=== PATIENT | female | born 1955 | race American Indian/Alaskan Native ===

== ENCOUNTER 2016-04-16 01:48 | Emergency (ER) | payer MEDICARE ==
[2016-04-16 02:25] LABS: Basophils % (Auto) 0.9 % (0.0-1.8); Eosinophils % (Auto) 1.3 % (0.0-4.3); Hematocrit 40.8 % (30.3-42.9); Hemoglobin 13.2 gm/dl (10.1-14.3); Mean Corpuscular HGB Conc 32 % (30-34); Mean Corpuscular Volume 79 fl (79-97); Platelet Count 352 K/mm3 (140-440); Red Blood Count 5.19 M/mm3 (3.65-5.03); Red Cell Distribution Width 13.7 % (13.2-15.2)
[2016-04-16 02:26] LABS: Mean Corpuscular Hemoglobin 25 pg (28-32)
[2016-04-16 02:46] LABS: Alanine Aminotransferase 18 units/L (7-56); Albumin 3.5 g/dL (3.9-5); Albumin/Globulin Ratio 0.9 %; Alkaline Phosphatase 136 units/L (35-129); BUN/Creatinine Ratio 16.25; Bilirubin,Total 0.4 mg/dL (0.1-1.2); Blood Urea Nitrogen 13 mg/dL (7-17); Calcium 8.8 mg/dL (8.4-10.2); Carbon Dioxide 20 mmol/L (22-30); Glucose 316 mg/dL (65-100); Lipase 37 units/L (13-60); Potassium 4.4 mmol/L (3.6-5.0); Sodium 134 mmol/L (137-145); Total Protein 7.2 g/dL (6.3-8.2)
[2016-04-16 02:51] LABS: Anion Gap 20 mmol/L
[2016-04-16 03:04] LABS: Bacteria,Urine 2+ /HPF (Negative); Bilirubin,Urine NEG (Negative); Blood,Urine MOD (Negative); Ketones,Urine NEG (Negative); Leukocyte Esterase,Urine LG (Negative); Mucus,Urine 1+ /HPF; Nitrite,Urine NEG (Negative); Urobilinogen,Urine < 2.0 mg/dL (<2.0)
[2016-04-16 03:09] LABS: WBC,Urine > 182.0 /HPF (0.0-6.0)
[2016-04-16] MEDS ORDERED: ZOFRAN ODT PO ONE (06:29)
--- NOTE | 2016-04-16 06:29 | Emergency Department Report ---
Chief Complaint: Abdominal Pain Stated Complaint: NAUSEA/DIARRHEA Time Seen by Provider: 04/16/16 06:15 - HPI History of Present Illness: She is a 60-year-old diabetic female on insulin who presents to ED complaining of pelvic abdominal pain 2 days. She describes pain as sharp nonradiating in nature. Patient admits to episodes of nausea today as well as nonbloody watery stools 2 today. Patient denies fevers/chills/dysuria/chest pain/shortness of breath/dizziness or headaches. - ROS Review of Systems: As noted in HPI - Exam Vital Signs: Vital Signs 04/16/16 04/16/16 01:58 06:11 Temperature 98.6 F 98.1 F Pulse Rate 90 87 Respiratory 20 18 Rate Blood Pressure 128/77 119/73 O2 Sat by Pulse 100 99 Oximetry Physical Exam: GENERAL: Alert and oriented x3, no apparent distress, Normal Gait, atraumatic. HEAD: Head is normocephalic and a-traumatic. MOUTH:Mouth is well hydrated and without lesions. Tonsils nonerythematous or swollen, Uvula midline, Tongue not elevated. Mucous membranes are moist. Posterior pharynx clear, no exudate or lesions. Patent airways. NECK: Supple. Non edematous, No carotid bruits. No lymphadenopathy or thyromegaly. LUNGS: Symetrical with respiration, No wheezing, no rales or crackles, CTAB. HEART: S1, S2 present, regular rate and rhythm without murmur, no rubs, no gallops. ABDOMEN: No organomegaly was noted,Positive bowel sounds, soft, and non- distended. . Nontender to palpation on all Quadrants, No CVA tenderness. MSE screening note: Focused history and physical exam performed. Due to findings the following was ordered: ED Medical Decision Making - Lab Data Result diagrams: 04/16/16 02:14 04/16/16 02:14 - Medical Decision Making Blood work shows leukocytosis, high blood glucose, alkaline phosphate elevated Urine shows positive for UTI. Positive left dorsalis positive bacteria positive mucus. Patient administer Zofran 8 mg for nausea. Patiently into the please seen by ED Physician ED Disposition for MSE Condition: Stable Instructions: Abdominal Pain (ED)
[2016-04-16 07:38] VITALS: BP 122/65
--- NOTE | 2016-04-16 08:19 | Emergency Department Report ---
ED Abdominal Pain HPI - General Chief Complaint: Abdominal Pain Stated Complaint: NAUSEA/DIARRHEA Time Seen by Provider: 04/16/16 08:10 Source: patient, family Mode of arrival: Ambulatory Limitations: No Limitations - History of Present Illness Initial Comments: 60-year-old female presents to the emergency department complaining of abdominal pain. Patient reports intermittent lower abdominal pain for the past 2 days. Patient describes the pain as a pulling sensation. Pain does not radiate. She reports associated nausea, vomiting, and diarrhea. She denies fever, hematuria, dysuria, vaginal bleeding, or vaginal discharge. There are no other complaints. MD Complaint: abdominal pain -: Gradual, days(s) (2) Location: suprapubic Radiation: none Migration to: no migration Severity: severe Severity scale (0 -10): 8 Quality: other (pulling) Consistency: intermittent Improves With: nothing Worsens With: nothing Associated Symptoms: nausea, vomiting, diarrhea - Related Data Previous Rx's Medication Instructions Recorded Last Taken Type Ibuprofen [Motrin] 600 mg PO Q8H PRN #30 tablet 12/28/14 Unknown Rx methOCARBAMOL [Robaxin TAB] 500 mg PO BID PRN #10 tab 12/28/14 Unknown Rx traMADol [Ultram] 50 mg PO Q8H PRN #14 tablet 12/28/14 Unknown Rx HYDROcodone/APAP 5-325 [[place] 1 each PO Q6HR PRN #14 tablet 04/16/16 Unknown Rx 5/325] Nitrofurantoin Bert[place]/M-Cryst 100 mg PO Q12HR #14 capsule 04/16/16 Unknown Rx [Macrobid CAP] Allergies Allergy/AdvReac Type Severity Reaction Status Date / Time metformin Allergy Vomiting Verified 04/16/16 01:58 ED Review of Systems ROS: Stated complaint: NAUSEA/DIARRHEA Other details as noted in HPI Comment: All other systems reviewed and negative Gastrointestinal: abdominal pain, nausea, vomiting, diarrhea ED Past Medical Hx - Past Medical History Previous Medical History?: Yes Hx Hypertension: Yes Hx CVA: Yes Hx Diabetes: Yes - Surgical History Past Surgical History?: Yes Additional Surgical History: Hysterectomy - Family History Family history: no significant - Social History Smoking Status: Never Smoker Substance Use Type: None - Medications Home Medications: Home Medications Medication Instructions Recorded Confirmed Last Taken Type Ibuprofen [Motrin] 600 mg PO Q8H PRN #30 tablet 12/28/14 04/16/16 Unknown Rx methOCARBAMOL [Robaxin TAB] 500 mg PO BID PRN #10 tab 12/28/14 04/16/16 Unknown Rx traMADol [Ultram] 50 mg PO Q8H PRN #14 tablet 12/28/14 04/16/16 Unknown Rx HYDROcodone/APAP 5-325 [[place] 1 each PO Q6HR PRN #14 tablet 04/16/16 Unknown Rx 5/325] Nitrofurantoin Bertie/M-Cryst 100 mg PO Q12HR #14 capsule 04/16/16 Unknown Rx [Macrobid CAP] ED Physical Exam - General Limitations: No Limitations General appearance: alert, in no apparent distress - Head Head exam: Present: atraumatic, normocephalic - Eye Eye exam: Present: normal appearance, PERRL, EOMI - ENT ENT exam: Present: normal exam, normal orophraynx, mucous membranes moist - Neck Neck exam: Present: normal inspection, full ROM. Absent: tenderness - Respiratory Respiratory exam: Present: normal lung sounds bilaterally. Absent: respiratory distress - Cardiovascular Cardiovascular Exam: Present: regular rate, normal rhythm, normal heart sounds - GI/Abdominal GI/Abdominal exam: Present: soft, tenderness (mild suprapubic tenderness to palpation), normal bowel sounds. Absent: distended, guarding, rebound - Extremities Exam Extremities exam: Present: normal inspection, full ROM. Absent: tenderness - Back Exam Back exam: Present: normal inspection, full ROM. Absent: tenderness - Neurological Exam Neurological exam: Present: alert, oriented X3. Absent: motor sensory deficit - Skin Skin exam: Present: warm, dry, intact ED Course Vital Signs 04/16/16 04/16/16 04/16/16 01:58 06:11 07:31 Temperature 98.6 F 98.1 F Pulse Rate 90 87 Respiratory 20 18 Rate Blood Pressure 128/77 119/73 122/65 Blood Pressure [Left] O2 Sat by Pulse 100 99 96 Oximetry 04/16/16 04/16/16 07:37 07:38 Temperature 98.1 F Pulse Rate 80 Respiratory 14 14 Rate Blood Pressure Blood Pressure 122/65 [Left] O2 Sat by Pulse 96 96 Oximetry ED Medical Decision Making - Lab Data Result diagrams: 04/16/16 02:14 04/16/16 02:14 - Medical Decision Making Lab results reviewed and discussed with the patient. Patient will be treated for her urinary tract infection and discharged home to follow up with her primary care physician. - Differential Diagnosis abdominal pain, UTI, gastroenteritis, electrolyte abnormality Critical care attestation.: If time is entered above; I have spent that time in minutes in the direct care of this critically ill patient, excluding procedure time. ED Disposition Clinical Impression: Acute cystitis Qualifiers: Hematuria presence: with hematuria Qualified Code(s): N30.01 - Acute cystitis with hematuria Disposition: DISCHARGED TO HOME OR SELFCARE Is pt being admited?: No Condition: Stable Instructions: Urinary Tract Infection in Women (ED) Prescriptions: Nitrofurantoin Bertie/M-Cryst [Macrobid CAP] 100 mg PO Q12HR #14 capsule HYDROcodone/APAP 5-325 [[place] 5/325] 1 each PO Q6HR PRN #14 tablet PRN Reason: Pain Referrals: PRIMARY CARE, [Primary Care Provider] - 3-5 Days Time of Disposition: 08:19
== END 2016-04-16 08:37 | disposition home or self-care (01) ==
LOC: ED 01:48
DX: N30.01 Acute cystitis with hematuria (principal); I10 Essential (primary) hypertension; I63.9 Cerebral infarction, unspecified; E11.9 Type 2 diabetes mellitus without complications; Z88.8 Allergy status to other drugs, medicaments and biological substances
CPT/HCPCS: 36415; 80053; 81001; 83690; 85025; 99283; Q0162

== ENCOUNTER 2018-12-04 03:12 | Emergency (ER) | payer MEDICARE ==
[2018-12-04 03:27] VITALS: BP 146/79
[2018-12-04] MEDS ORDERED: TORADOL IM ONE (04:46)
[2018-12-04] MEDS ORDERED: DECADRON IM ONE (04:47)
--- NOTE | 2018-12-04 04:50 | Emergency Department Report ---
ED Extremity Problem HPI - General Chief complaint: Extremity Injury, Lower Stated complaint: DULL MUSCLE Time Seen by Provider: 12/04/18 04:46 Source: patient Mode of arrival: Ambulatory Limitations: No Limitations - History of Present Illness Initial comments: 63-year-old -[place] female presents to the emergency room for awakening right hip pain 1 day. Patient states he radiates to her knee. Patient reports it is worse when she steps on her right foot. Patient denies any fall or injury. Patient has taken nothing for the pain. 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 Patient is followed by [facility]. MD Complaint: extremity pain Onset/Timin -: days(s) Location: right, other (hip) - Related Data Previous Rx's Medication Instructions Recorded Last Taken Type Ibuprofen [Motrin] 600 mg PO Q8H PRN #30 tablet 12/28/14 Unknown Rx methOCARBAMOL [Robaxin TAB] 500 mg PO BID PRN #10 tab 12/28/14 Unknown Rx traMADol [Ultram] 50 mg PO Q8H PRN #14 tablet 12/28/14 Unknown Rx HYDROcodone/APAP 5-325 [[place] 1 each PO Q6HR PRN #14 tablet 04/16/16 Unknown Rx 5/325] Nitrofurantoin [place]/M-Cryst 100 mg PO Q12HR #14 capsule 04/16/16 Unknown Rx [Macrobid CAP] Naproxen [Naprosyn] 500 mg PO BID PRN #30 tablet 12/04/18 Unknown Rx Allergies Allergy/AdvReac Type Severity Reaction Status Date / Time metformin Allergy Vomiting Verified 04/16/16 01:58 ED Review of Systems ROS: Stated complaint: DULL MUSCLE Other details as noted in HPI ED Past Medical Hx - Past Medical History Previous Medical History?: Yes Hx Hypertension: Yes Hx CVA: Yes Hx Diabetes: Yes - Surgical History Past Surgical History?: Yes Additional Surgical History: Hysterectomy - Social History Smoking Status: Never Smoker Substance Use Type: None - Medications Home Medications: Home Medications Medication Instructions Recorded Confirmed Last Taken Type Ibuprofen [Motrin] 600 mg PO Q8H PRN #30 tablet 12/28/14 04/16/16 Unknown Rx methOCARBAMOL [Robaxin TAB] 500 mg PO BID PRN #10 tab 12/28/14 04/16/16 Unknown Rx traMADol [Ultram] 50 mg PO Q8H PRN #14 tablet 12/28/14 04/16/16 Unknown Rx HYDROcodone/APAP 5-325 [[place] 1 each PO Q6HR PRN #14 tablet 04/16/16 Unknown Rx 5/325] Nitrofurantoin [place]/M-Cryst 100 mg PO Q12HR #14 capsule 04/16/16 Unknown Rx [Macrobid CAP] Naproxen [Naprosyn] 500 mg PO BID PRN #30 tablet 12/04/18 Unknown Rx ED Physical Exam - General Limitations: No Limitations General appearance: alert, in no apparent distress - Head Head exam: Present: atraumatic, normocephalic - Eye Eye exam: Present: normal appearance - ENT ENT exam: Present: mucous membranes moist - Expanded Lower Extremity Exam Right Hip exam: Present: tenderness (greater trochanter) Upper Leg exam: Present: normal inspection, full ROM Knee exam: Present: normal inspection, full ROM Lower Leg exam: Present: normal inspection, full ROM Ankle exam: Present: normal inspection, full ROM - Back Exam Back exam: Present: normal inspection - Neurological Exam Neurological exam: Present: alert, oriented X3 - Psychiatric Psychiatric exam: Present: normal affect, normal mood - Skin Skin exam: Present: warm, dry, intact, normal color. Absent: rash ED Course Vital Signs 12/04/18 03:23 Temperature 97.7 F Pulse Rate 71 Respiratory 18 Rate Blood Pressure 146/79 O2 Sat by Pulse 99 Oximetry ED Medical Decision Making - Medical Decision Making 63-year-old -[place] female presents to the emergency room for awakening right hip pain 1 day. Patient states he radiates to her knee. Patient reports it is worse when she steps on her right foot. Patient denies any fall or injury. Patient has taken nothing for the pain. 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 Patient is followed by [facility]. Patient will be given a Toradol injection and a dexamethasone injection. Patient has a bursitis of her hip. I discussed the patient that the steroid may increase her blood sugars that she will need to make an adjustment to her NovoLog. Also discussed the patient she can take ibuprofen or naproxen for pain management. Patient verbalized understanding. Critical care attestation.: If time is entered above; I have spent that time in minutes in the direct care of this critically ill patient, excluding procedure time. ED Disposition Clinical Impression: Bursitis of hip, right Disposition: DC- TO HOME OR SELFCARE Is pt being admited?: No Does the pt Need Aspirin: No Condition: Stable Instructions: Hip Bursitis (ED) Additional Instructions: Please take naproxen as needed for pain. Please be aware that her blood sugars may increase after having the steroid injection from the emergency room. Please just see her NovoLog as needed. Follow up with her primary care provider if his symptoms persist or gets worse. Prescriptions: Naproxen [Naprosyn] 500 mg PO BID PRN #30 tablet PRN Reason: Pain , Severe (7-10) Referrals: SUAD MURRELL MD [Primary Care Provider] - 3-5 Days [facility] [Outside] - 3-5 Days
== END 2018-12-04 05:11 | disposition home or self-care (01) ==
LOC: ED 03:12
DX: M70.71 Other bursitis of hip, right hip (principal); I10 Essential (primary) hypertension; E11.9 Type 2 diabetes mellitus without complications; Z86.73 Personal history of transient ischemic attack (TIA), and cerebral infarction without residual deficits
CPT/HCPCS: 96372; 99282; J1885